=== PATIENT | female | born 1995 | race Caucasian/White ===

== ENCOUNTER 2024-02-07 14:25 | Emergency (ER) | payer BC ==
[~2024-02-07] VITALS: Ht 152.4 cm; Wt 68.0 kg
[2024-02-07 14:39] VITALS: BP_SYST 101; PULSE 64; RESP 18; TEMP 97.6; O2SAT 98
[2024-02-07] MEDS: HYDROcodone/ACETAMIN 5-325 MG TAB (NORCO/ VICODIN) PO ONE (14:57)
[2024-02-07] MEDS ORDERED: METH-634 PO (17:07)
[2024-02-07 17:13] VITALS: BP_SYST 101; PULSE 64; RESP 18; TEMP 97.6; O2SAT 98
== END 2024-02-07 17:13 | disposition home or self-care (01) ==
LOC: SED 14:25
DX: M54.50 Low back pain, unspecified (principal); M54.6 Pain in thoracic spine; Z79.899 Other long term (current) drug therapy
CPT/HCPCS: 72072; 99283